=== PATIENT | male | born 1950 | race Caucasian/White ===

== ENCOUNTER 2017-10-11 15:22 | Emergency (ER) | payer OTHER ==
[2017-10-11 15:43] VITALS: RESP 16
[2017-10-11] MEDS ORDERED: DIAZEPAM 5 MG TAB PO ONE (17:42)
--- NOTE | 2017-10-11 17:47 | EDPHY ---
H & P Stated Complaint: sore neck Time Seen by Provider: 10/11/17 17:32 HPI/ROS: CHIEF COMPLAINT: Left neck strain HISTORY OF PRESENT ILLNESS: Patient is a 67-year-old man who comes to the emergency department complaining of a strain in his left neck. He states that it began last night and hurts with movement. He has a history of cervical stenosis. He denies any trauma. He denies any chest pain or shortness of breath. He denies any weakness numbness or paresthesias. No headache. No vision changes. No dizziness. He states that he has had neck strains before they usually resolve with stretching. No fevers. He states that he has been waiting for 2 hr to see the doctor and now his symptoms have resolved. REVIEW OF SYSTEMS: Constitutional: denies: chills, fever, recent illness, recent injury EENTM: denies: blurred vision, double vision, nose congestion Respiratory: denies: cough, shortness of breath Cardiac: denies: chest pain, irregular heart rate, lightheadedness, palpitations Gastrointestinal/Abdominal: denies: abdominal pain, diarrhea, nausea, vomiting, blood streaked stools Genitourinary: denies: dysuria, frequency, hematuria, pain Musculoskeletal: See HPI Skin: denies: lesions, rash, jaundice, bruising Neurological: denies: headache, numbness, paresthesia, tingling, dizziness, weakness Hematologic/Lymphatic: denies: blood clots, easy bleeding, easy bruising Immunologic/allergic: denies: HIV/AIDS, transplant EXAM: GENERAL: Well-appearing, well-nourished and in no acute distress. HEAD: Atraumatic, normocephalic. EYES: Pupils equal round and reactive to light, extraocular movements intact, sclera anicteric, conjunctiva are normal. ENT: TMs normal, nares patent, oropharynx clear without exudates. Moist mucous membranes. NECK: Normal range of motion, supple without lymphadenopathy or JVD. LUNGS: Breath sounds clear to auscultation bilaterally and equal. No wheezes rales or rhonchi. HEART: Regular rate and rhythm without murmurs, rubs or gallops. ABDOMEN: Soft, nontender, normoactive bowel sounds. No guarding, no rebound. No masses appreciated. BACK: No CVA tenderness, no spinal tenderness, step-offs or deformities EXTREMITIES: Normal range of motion, no pitting or edema. No clubbing or cyanosis. NEUROLOGICAL: Cranial nerves II through XII grossly intact. Normal speech, normal gait. 5/5 strength, normal movement in all extremities, normal sensation PSYCH: Normal mood, normal affect. SKIN: Warm, dry, normal turgor, no visible rashes or lesions. Source: Patient Exam Limitations: No limitations - Personal History Current Tetanus/Diphtheria Vaccine: Yes Current Tetanus Diphtheria and Acellular Pertussis (TDAP): Yes - Medical/Surgical History Hx Asthma: No Hx Chronic Respiratory Disease: No Hx Diabetes: No Hx Cardiac Disease: No Hx Renal Disease: No Hx Cirrhosis: No Hx Alcoholism: No Hx HIV/AIDS: No Other PMH: cervical stenosis - Family History Significant Family History: No pertinent family hx - Social History Smoking Status: Former smoker Alcohol Use: Sober Drug Use: None Constitutional: Initial Vital Signs Temperature (C) 36.4 C 10/11/17 15:40 Heart Rate 58 L 10/11/17 15:40 Respiratory Rate 16 10/11/17 15:40 Blood Pressure 125/65 H 10/11/17 15:40 O2 Sat (%) 95 10/11/17 15:40 O2 Delivery Mode Room Air Allergies/Adverse Reactions: No Known Allergies Allergy (Unverified 10/11/17 15:43) Home Medications: Medication Instructions Recorded Diazepam [Valium 5 MG (*)] 5 mg PO TID PRN #10 tab 10/11/17 Medical Decision Making - Diagnostics EKG Interpretation: An EKG obtained and was read and documented in trace view. Please see trace view for full reading and report. ED Course/Re-evaluation: Patient currently has no findings on exam and no complaints. He states that his muscle spasming has resolved. He would like to try Valium to see if this presents it from coming back. I did offer imaging but he declines. I will refer him to a computer network specialist for further evaluation. We discussed indications for returning. No sign of dissection, infection, nerve deficit or cardiac disease on exam. Differential Diagnosis: Partial list of the Differential diagnosis considered include but were not limited to; muscle strain, radiculopathy and although unlikely based on the history and physical exam, I also considered dissection, CVA, infection, acute coronary disease. I discussed these differential diagnoses and the plan with the patient as well as the usual and expected course. The patient understands that the diagnosis is provisional and that in medicine we are not always correct and that further workup is often warranted. Usual and customary warnings were given. All of the patient's questions were answered. The patient was instructed to return to the emergency department should the symptoms at all worsen or return, otherwise to followup with the physician as we discussed. - Data Points Medications Given: Discontinued Medications Diazepam (Valium) 5 mg PO EDNOW ONE Stop: 10/11/17 17:43 Last Admin: 10/11/17 18:01 Dose: 5 mg Departure - Departure Disposition: Home, Routine, Self-Care Clinical Impression: Cervical strain, acute Qualifiers: Encounter type: initial encounter Qualified Code(s): S16.1XXA - Strain of muscle, fascia and tendon at neck level, initial encounter Condition: Good Instructions: Cervical Strain (ED) Referrals: Evette Rivers MD [Primary Care Provider] - As per Instructions Kirk Borges MD [Medical Doctor] - 3-4 days, if not improved Prescriptions: Diazepam [Valium 5 MG (*)] 5 mg PO TID PRN #10 tab PRN Reason: Spasms
--- NOTE | 2017-10-11 18:06 | CPEKG ---
Heart Rate: 50 RR Interval: 1200 P-R Interval: 196 QRSD Interval: 82 QT Interval: 448 QTC Interval: 409 P Arvin: 65 QRS Arvin: 45 T Wave Arvin: 36 EKG Severity - NORMAL ECG - EKG Impression: SINUS RHYTHM Electronically Signed By: Juan Antonio Jordan 11-Oct-2017 18:08:05
[2017-10-11 18:23] VITALS: BP 132/69; PULSE 65; TEMP 98.4; O2SAT 96
== END 2017-10-11 18:19 | disposition home or self-care (01) ==
DX: S16.1XXA Strain of muscle, fascia and tendon at neck level, initial encounter (principal); Z87.891 Personal history of nicotine dependence; X58.XXXA Exposure to other specified factors, initial encounter

== ENCOUNTER 2017-10-18 08:24 | Emergency (ER) | payer OTHER ==
[2017-10-18 08:32] VITALS: TEMP 97.5
--- NOTE | 2017-10-18 08:44 | EDPHY ---
H & P Stated Complaint: hx cervical stenosis/1 wk neck pain seen previously in ed/and pcp Time Seen by Provider: 10/18/17 08:44 HPI/ROS: HPI: This is a 67-year-old male presents with Chief Complaint: Neck strain Location: Left side of Neck Quality: Strain Duration: 1 week Signs and Symptoms: No bleeding, no radiation, no numbness, no weakness, no tingling, no incontinence, no decreased range of motion, + swelling, + pain Timing: Waxes and wane Severity: 8/10 Context: Patient has a history cervical stenosis (patient unsure of what level ) evaluated by "specialist" several years ago at which time images were performed presents for the 2nd time to the emergency room with complaints of left-sided, nonradiating, rapidly worsening 8/10 pain. 1 week ago presents to the emergency room with cervical strain, declined imaging at that time, asked for Valium, which patient reports work. Patient followed with primary care provider, Dr. Cassidy, several days after emergency room visit and thorough exam was performed per and it was determined to be musculoskeletal in nature. Feels given 4 days steroid taper and reports yesterday he felt the best that he had in over a week. Yesterday evening he was sitting at his computer working and he started to developed left-sided neck strain that gradually worsened. He woke up this morning with it being severe, constant nonradiating in nature. EKG performed at last emergency room visit and was unremarkable for acute ischemic changes. Patient denies weakness/paresthesias/ sore throat/ear pain/upper respiratory symptoms/chest pain/abdominal pain/ shortness of breath. Patient is wearing cervical soft collar to aid in his comfort and pain relief. Modifying Factors: Valium, steroid taper with transient relief Comment: ROS: see HPI Constitutional: No fever, no chills, no weight loss Eyes: No blurred vision Respiratory: No shortness of breath, no cough Cardiovascular: No chest pain Gastrointestinal: No nausea, no vomiting no diarrhea Genitourinary: No dysuria Extremities: No myalgias Neurologic: No weakness, no numbness Skin: No rashes Hematologic: No bruising, no bleeding MEDICAL/SURGICAL/SOCIAL HISTORY: Medical history: Generally healthy. Does not take any regular medications. Surgical history: Denies Social history: . Employed. CONSTITUTIONAL: Elderly, mild distress male, awake and alert, at bedside HEENT: Atraumatic and normocephalic. NECK: supple, no midline tenderness, left trapezius reproducible tenderness, flexion 45 degrees, extension 45 degrees, right and left lateral flexion 45 degrees. No meningismus. No carotid bruits. Cardiovascular: Normal S1/S2, regular rate, regular rhythm, without murmur rub or gallop. PULMONARY/CHEST: Symmetrical and nontender. no crepitus. Clear to auscultation bilaterally. Good air movement. No accessory muscle usage. ABDOMEN: Soft, nondistended, nontender, no ecchymosis. PELVIC: no pain with rocking; bilateral hips flexion 125 degrees, extension 30 degrees, with no pain internal rotation and no pain external rotation. BACK: No midline tenderness, no paraspinous spasm, deep tendon reflexes 2/2, no pain with straight leg raise EXTREMITIES: 2/2 pulses, Left SHOULDER: Arc test abduction to 180, abduction to 45, horizontal flexion 130, horizontal extension to 45, deltoid strength 5 /5. No pain with Neer test/Yoder test (impingement). no tenderness to palpation over AC joint. no deformities, no clubbing, no cyanosis or edema. Presentation Designer strength 5/5. NEUROLOGICAL: no focal neuro deficits. GCS 15. Light touch sensation intact. SKIN: Warm and dry, no erythema. no rash. Good capillary refill. Source: Patient, Family () - Personal History Current Tetanus/Diphtheria Vaccine: Yes - Medical/Surgical History Hx Asthma: No Hx Chronic Respiratory Disease: No Hx Diabetes: No Hx Cardiac Disease: No Hx Renal Disease: No Hx Cirrhosis: No Hx Alcoholism: No Hx HIV/AIDS: No Other PMH: cervical stenosis - Social History Smoking Status: Former smoker Constitutional: Initial Vital Signs Temperature (C) 36.4 C 10/18/17 08:29 Heart Rate 56 L 10/18/17 08:29 Respiratory Rate 17 10/18/17 08:29 Blood Pressure 112/71 10/18/17 08:29 O2 Sat (%) 94 10/18/17 08:29 O2 Delivery Mode Room Air Allergies/Adverse Reactions: No Known Allergies Allergy (Verified 10/18/17 08:28) Home Medications: Medication Instructions Recorded Diazepam [Valium 5 MG (*)] 5 mg PO TID PRN #10 tab 01/17/18 Ketorolac Tromethamine [Toradol] 10 mg PO Q6H #10 tab 10/18/17 Lidocaine 5% [Lidoderm 5% Patch 1 ea TD DAILY #6 patch 10/18/17 (*)] methylPREDNISolone 10/18/17 Medical Decision Making - Diagnostics Imaging Results: Imaging Impressions Cervical Spine X-Ray 10/18/17 08:56 Impression: Little if any change in spondylosis since May 2015. ED Course/Re-evaluation: Patient's is asking for an MRI of his neck to be performed. I have discussed the options with both the patient and the and it was agreed upon to start with a cervical x-ray. Patient was given IV Decadron, IV Toradol, IV Valium and p.o. gabapentin upon arrival. Patient is afebrile without any systemic signs. ER secretary of police called [facility]. MRI cervical spine outpatient as scheduled at 1 :50 p.m. today. Follow-up appointment scheduled for , October 25, 9: 50 AM. Cervical x-ray my read shows little to no change of the spondylosis when compared to x-ray in 2014 Cervical x-ray placed on disc for patient to take home. 1017: Reassessed pain which is down to a 4 to 5/10. Patient and are appreciative of care. No signs of neurovascular compromise/tenting of skin/compartment syndrome/ extremities and joints examined above and below area of concern and are neurovascularly intact. This patient was seen under the supervision of my secondary supervising physician. I evaluated care for this patient independently. Differential Diagnosis: Differential diagnosis includes but is not limited to cervical muscle strain, cervical degenerative disc disease, cervical disc herniation, cervical stenosis. - Data Points Medications Given: Discontinued Medications Dexamethasone (Decadron Injection) 8 mg IVP EDNOW ONE Stop: 10/18/17 08:57 Last Admin: 10/18/17 09:25 Dose: 8 mg Diazepam (Valium) 5 mg IVP EDNOW ONE Stop: 10/18/17 08:57 Last Admin: 10/18/17 09:25 Dose: 5 mg Gabapentin (Neurontin) 600 mg PO EDNOW ONE Stop: 10/18/17 08:57 Last Admin: 10/18/17 09:20 Dose: 600 mg Ketorolac Tromethamine (Toradol) 15 mg IVP EDNOW ONE Stop: 10/18/17 08:57 Last Admin: 10/18/17 09:25 Dose: 15 mg Lidocaine (Lidoderm 5%) 1 ea TD DAILY JODI Stop: 04/17/18 08:59 Last Admin: 10/18/17 10:29 Dose: 1 ea Departure - Departure Disposition: Home, Routine, Self-Care Clinical Impression: Cervical spondylosis without myelopathy Condition: Good Instructions: Cervical Spinal Stenosis (ED), Degenerative Disc Disease (ED) Additional Instructions: MRI cervical spine is scheduled outpatient at 1:50 p.m. today. You have a follow-up appointment with [facility] October 25 at 9:50 a.m. Referrals: Evette Rivers MD [Primary Care Provider] - As per Instructions Too Osuna MD [Medical Doctor] - 10/25/17 9:50 am Prescriptions: Ketorolac Tromethamine [Toradol] 10 mg PO Q6H #10 tab Lidocaine 5% [Lidoderm 5% Patch (*)] 1 ea TD DAILY #6 patch
[2017-10-18] MEDS ORDERED: GABAPENTIN 300 MG CAP PO ONE (08:56)
[2017-10-18] MEDS ORDERED: DEXAMETHASONE 4 MG/ML VIAL IVP ONE (08:56)
[2017-10-18] MEDS ORDERED: DIAZEPAM 10 MG/2 ML SYR IVP ONE (08:56)
[2017-10-18] MEDS ORDERED: KETOROLAC 15 MG/1 ML SDV IVP ONE (08:56)
[2017-10-18] MEDS ORDERED: LIDOCAINE 5% 1 EA PATCH TD ONE (10:23)
[2017-10-18 10:29] VITALS: BP 116/69; PULSE 67; RESP 19; O2SAT 95
[2017-10-18] MEDS ORDERED: PATCH REMOVAL 1 EA PATCH TD SCH (21:00)
[2017-10-19] MEDS ORDERED: LIDOCAINE 5% 1 EA PATCH TD SCH (09:00)
== END 2017-10-18 10:39 | disposition home or self-care (01) ==
DX: M47.812 Spondylosis without myelopathy or radiculopathy, cervical region (principal); Z87.891 Personal history of nicotine dependence
CPT/HCPCS: 72040; 96374; 96375; 99284; J1100; J1885